=== PATIENT | female | born 1985 | race Caucasian/White ===

== ENCOUNTER 2020-12-26 08:06 | Outpatient (CLI) | payer OTHER ==
[~2020-12-26 08:06] MED LIST: PREVACID 15MG15 MG; ZANTAC300 MG PO
== END 2020-12-26 09:20 | disposition home or self-care (01) ==
LOC: PRENATAL 08:06
PROVIDERS: ATTEND Obstetrics & Gynecology Maternal & Fetal Medicine
DX: O35.0XX1 Maternal care for (suspected) central nervous system malformation in fetus, fetus 1 (principal); O35.3XX1 Maternal care for (suspected) damage to fetus from viral disease in mother, fetus 1; O98.512 Other viral diseases complicating pregnancy, second trimester; Z36.89 Encounter for other specified antenatal screening; Z3A.22 22 weeks gestation of pregnancy

== ENCOUNTER 2021-01-23 17:50 | Outpatient (CLI) | payer OTHER ==
[2021-01-24] MEDS ORDERED: PRENATAL CAPLE1 EAC1 PO (10:20)
== END 2021-01-24 13:25 | disposition home or self-care (01) ==
LOC: OBS/DEL 17:50
PROVIDERS: ATTEND Obstetrics & Gynecology Obstetrics
DX: O26.892 Other specified pregnancy related conditions, second trimester (principal); R10.2 Pelvic and perineal pain; Z3A.26 26 weeks gestation of pregnancy

== ENCOUNTER 2021-04-29 04:49 | Inpatient (IN) | payer OTHER ==
[~2021-04-29] VITALS: Ht 166.4 cm; Wt 70.8 kg
[~2021-04-29 04:49] MED LIST changes: +PRENATAL CAPLE1 EAC1 PO
[2021-04-30] MEDS ORDERED: ROSUVASTATIN CA10 MG (08:29)
== END 2021-05-01 14:58 | disposition home or self-care (01) | DRG 807 ==
LOC: LDR 04:49 → OB/GYN 04:49
PROVIDERS: ADMIT Obstetrics & Gynecology Obstetrics; ATTEND Obstetrics & Gynecology Obstetrics
PROC: 10E0XZZ Delivery of Products of Conception, External Approach (ICD-10-PCS; principal; 2021-04-29)
PROC: 4A1HXFZ Monitoring of Products of Conception, Cardiac Rhythm, External Approach (ICD-10-PCS; 2021-04-29)
PROC: 3E0P7VZ Introduction of Hormone into Female Reproductive, Via Natural or Artificial Opening (ICD-10-PCS; 2021-04-29)
DX: O80 Encounter for full-term uncomplicated delivery (principal); Z37.0 Single live birth; Z3A.39 39 weeks gestation of pregnancy; Z20.822 Contact with and (suspected) exposure to COVID-19

== ENCOUNTER → 2022-05-27 | Emergency (ER) | payer OTHER ==
[~2022-05-27] VITALS: Ht 165.1 cm; Wt 59.9 kg
[~2022-05-27] MED LIST changes: +ROSUVASTATIN CA10 MG
== END | disposition home or self-care (01) ==
LOC: ER 10:49
DX: B34.9 Viral infection, unspecified (principal); Z20.822 Contact with and (suspected) exposure to COVID-19

== ENCOUNTER → 2024-09-30 | Emergency (ER) | payer OTHER ==
[~2024-09-30] VITALS: Ht 165.1 cm; Wt 55.3 kg
[~2024-09-30] MED LIST changes: +0.9 % SODIUM CHLORIDE 500 ML IV ONE; +FAMOTIDINE/PF 20 MG/2 ML VIAL IV ONE; +FAMOTIDINE/PF 20 MG/2 ML VIAL ONE; +LACTOBACILLUS ACIDOPHILUS 1 CAP CAP PO ONE; +LUNESTA2 MG; +SUCRALFATE 1 G TABLET PO ONE; +TRAZODONE HCL150 MG
[2024-09-30 16:35] LABS: BASO % 0.8 % (0.1-1.2); EOS # 0.09 (0.04-0.54); EOS % 1.5 % (0.7-7.0); HEMATOCRIT 36.1 % (34.1-44.9); HEMOGLOBIN 11.9 g/dL (11.2-15.7); LYMPH % 26.9 % (19.3-53.1); MEAN CORPUSCULAR HEMOGLOBIN 30.2 pg (25.6-32.2); MONO # 0.48 (0.24-0.82); MONO % 8.1 % (4.7-12.5); NEUT % 62.4 % (34.0-71.1); PLATELET COUNT 235 K/uL (163-369); RED BLOOD COUNT 3.94 M/uL (3.93-5.22)
[2024-09-30 17:13] LABS: ALBUMIN 4.2 gm/dL (3.4-5.0); ALKALINE PHOSPHATASE 61 U/L (50-136); ALT/SGPT 25 U/L (12-78); AMYLASE 103 U/L (25-115); ANION GAP 8 (10.0-20.0); AST/SGOT 16 U/L (15-37); BILIRUBIN TOTAL 0.26 mg/dL (0.3-1.2); BILIRUBIN,CONJUGATED < 0.10 mg/dL (0.0-0.2); BILIRUBIN,UNCONJUGATED 0.16 mg/dL (0.0-0.6); BLOOD UREA NITROGEN 11 mg/dL (7-18); BUN CREA RATIO 16 (7.0-25.0); CALCIUM 8.7 mg/dL (8.5-10.1); CARBON DIOXIDE 29 mEq/L (21-32); CHLORIDE 108 mmol/L (98-107); CREATININE SERUM 0.69 mg/dL (0.55-1.02); GFR 96.27; GLOBULINA 3.4 G/DL (2.4-3.5); GLUCOSE FASTING 74 mg/dL (65-100); LIPASE 57 U/L (13-75); OSMOLALITY SERUM 279 MOSM/KG (275-295); POTASSIUM 4.09 mEq/L (3.5-5.1); SODIUM 141 mmol/L (136-145); TOTAL PROTEIN 7.6 gm/dL (6.4-8.2)
[2024-09-30 17:13] LABS: PH,URINE 7.5 (5.0-8.0); URINE APPEARANCE Clear; URINE BILIRRUBIN Negative (NEGATIVE); URINE COLOR Dark Yellow; URINE GLUCOSE Negative (NEGATIVE); URINE KETONE Negative (NEGATIVE); URINE LEUKOCYTE Negative; URINE NITRATE Negative; URINE PROTEIN Negative (NEGATIVE); URINE UROBILINOGEN 0.2 E.U./dl
[2024-09-30 17:17] LABS: URINE BACTERIA 1100.3 uL (0.0-1933); URINE EPITHELIAL CELLS 21.9 uL (0.0-38.8); URINE RBC 22.2 uL (0.0-20.8); URINE WBC 10.2 uL (0.0-23.2)
[2024-09-30 17:21] LABS: URINE BLOOD TRACE
== END | disposition left against medical advice (07) ==
LOC: ER 13:25
PROVIDERS: Emergency Medicine
DX: R10.11 Right upper quadrant pain (principal); G47.00 Insomnia, unspecified